=== PATIENT | male | born 1985 | race Caucasian/White ===

== ENCOUNTER 2021-02-10 17:58 | Emergency (ER) | payer BC ==
[~2021-02-10] VITALS: Ht 193 cm; Wt 101.3 kg
[2021-02-10] MEDS ORDERED: FAMO-63 PO (18:22)
[2021-02-10] MEDS ORDERED: PRED20TA PO (18:22)
[2021-02-10] MEDS ORDERED: DIPH25CA58 PO (18:22)
[2021-02-10 18:58] VITALS: BP 130/86
== END 2021-02-10 19:00 | disposition home or self-care (01) ==
LOC: ER 17:58
DX: T78.40XA Allergy, unspecified, initial encounter (principal); Z88.2 Allergy status to sulfonamides
CPT/HCPCS: 99284; J8540; Q0163